=== PATIENT | female | born 1985 | race Caucasian/White ===

== ENCOUNTER → 2020-03-10 11:00 | Outpatient (BNVA) | payer OTHER, SELFPAY | PROVIDERS: Visit Provider Nurse Practitioner Family | DX: Z11.59 Encounter for screening for other viral diseases (principal); Z20.828 Contact with and (suspected) exposure to other viral communicable diseases | CPT/HCPCS: 87635 ==

== ENCOUNTER → 2020-11-19 22:19 | Outpatient (BNVA) | payer OTHER, SELFPAY | PROVIDERS: Visit Provider Nurse Practitioner Family | DX: E88.81 Metabolic syndrome and other insulin resistance (principal); Z68.38 Body mass index [BMI] 38.0-38.9, adult; R53.83 Other fatigue; E11.9 Type 2 diabetes mellitus without complications | CPT/HCPCS: 80053; 82306; 82607; 83036; 83550; 84443; 84481; 85025 ==

== ENCOUNTER → 2022-01-26 09:56 | Outpatient (BNVA) | payer OTHER, SELFPAY | PROVIDERS: Visit Provider Obstetrics & Gynecology | DX: Z12.4 Encounter for screening for malignant neoplasm of cervix (principal) | CPT/HCPCS: 87624 ==